=== PATIENT | male | born 1960 | race Caucasian/White ===

== ENCOUNTER 2018-05-19 16:08 | Inpatient (IN) | payer OTHER ==
[2018-05-19] MEDS ORDERED: Senokot S 8.6-50 MG TAB PO PRN (19:32)
[2018-05-19] MEDS ORDERED: Guaifenesin DM 100-10/5 ML UDCUP PO PRN (19:32)
[2018-05-19] MEDS ORDERED: Acetaminophen 325 MG TAB PO PRN (19:32)
[2018-05-19 20:54] VITALS: BMI 43.9
[2018-05-19 21:32] LABS: Troponin I Less than 0.010 ng/mL (< 0.028)
[2018-05-19] MEDS: Famotidine 20 MG TAB PO SCH (21:54)
[2018-05-19] MEDS: Piperacillin/Tazobactam 4.5 GM in Sodium Chloride 0.9% 100 ML IVPB SCH (21:54)
[2018-05-19] MEDS: Metoprolol Tartrate 50 MG TAB PO SCH (21:54)
[2018-05-19] MEDS: Sodium Chloride 0.9% 1,000 ML IV SCH (21:57)
[2018-05-19] MEDS: Nicotine 21 MG PATCH TD SCH (21:58)
[2018-05-19 22:46] LABS: Troponin I Less than 0.010 ng/mL (< 0.028)
[2018-05-20] MEDS: Vancomycin HCl 1.5 GM in Sodium Chloride 0.9% 250 ML 300 ML IVPB SCH ×2 (00:11→09:35)
[2018-05-20] MEDS: Diltiazem 125 MG in Sodium Chloride 0.9% 100 ML IVPB SCH ×3 (00:11→22:58)
[2018-05-20] MEDS ORDERED: VANCOMYCIN/ RENALLY ADJUST ZOSYN IVPB PRN (00:31)
--- NOTE | 2018-05-20 01:39 | HP ---
PRIMARY CARE PHYSICIAN: Dr. Lisa Soares in [place]. REASON FOR ADMISSION: Atrial fibrillation with rapid ventricular response, new onset right lower ext remity cellulitis, sepsis. HISTORY OF PRESENT ILLNESS: The patient gives history of having swollen foot on the right side on . This started to become red. Progressively, this has gotten up to his knees. The patient wa s unable to move due to severe swelling and pain to ambulate. No complaints of chest pain or palpita tion. The patient has no shortness of breath, although I can hear his wheezes. He has had a stress test done 20 years back which was normal. No prior history of atrial fibrillation. The patient went to [place] [facility] from where he was transferred here. PAST MEDICAL/SURGICAL HISTORY: Hypertension, no prior surgery. CURRENT MEDICATIONS: Takes a medication for high blood pressure, does not know the name. PERSONAL HISTORY: Smokes 1 pack per day. Quit alcohol long back. Does not abuse drugs. He works [employer] in [place], [place]. FAMILY HISTORY: Mother is living and healthy. Father of stroke in his 80s. He lives alone. CODE STATUS: FULL. Power of claims attorney is his mom. REVIEW OF SYSTEMS: The following complete review of systems was negative, unless otherwise mentioned in the HPI or below: Constitutional: Weight loss or gain, ability to conduct usual activities. Skin: Rash, itching. Eyes: Double vision, pain. ENT/Mouth: Nose bleeding, neck stiffness, pain, tenderness. Cardiovascular: Palpitations, dyspnea on exertion, orthopnea. Respiratory: Shortness of breath, wheezing, cough, hemoptysis, fever or night sweats. Gastrointestinal: Poor appetite, abdominal pain, heartburn, nausea, vomiting, constipation, or diarr hea. Genitourinary: Urgency, frequency, dysuria, nocturia. Musculoskeletal: Pain, swelling. Neurologic/Psychiatric: Anxiety, depression. Allergy/Immunologic: Skin rash, bleeding tendency. PHYSICAL EXAMINATION: GENERAL: The patient is a 58-year-old male who is currently in moderate distress from pain in his ri ght lower extremity. VITAL SIGNS: Blood pressure 126/74, pulse 130 per minute, respiratory rate 20 per minute, temperatur e 100 degrees Fahrenheit, saturating 96% on room air. NECK: Supple, no elevated JVD. EYES: Extraocular muscles intact. Pupils reacting to light. ORAL CAVITY: Mucous membranes are dry. No exudates or congestion. CARDIOVASCULAR SYSTEM: S1, S2 heard. Irregular rhythm. RESPIRATORY SYSTEM: Air entry 2+ bilateral. Scattered wheezes plus bilateral. ABDOMEN: Soft, bowel sounds heard. No tenderness, rigidity or guarding. EXTREMITIES: Right leg area is swollen and is diffusely erythematous. He also has blisters on the a nterolateral aspect, multiple of them. Capillary refill is good in the toes. Left lower extremity, no calf tenderness or edema. VASCULAR SYSTEM: Peripheral pulses 1+ bilateral, no ischemic ulcerations or gangrene. CENTRAL NERVOUS SYSTEM: No gross focal deficits noted. Patient is alert, awake, oriented well. PSYCHIATRIC SYSTEM: The patient's mood is euthymic. No hallucinations or delusions. LABORATORY DATA AND IMAGING DATA: Please note all these labs were done at [place] [facility]. Had a white count of 25, hemoglobin and hematocrit 16 and 47, platelet count 208 with 88% neutrophil s. BNP was 108. Sodium 128, potassium 3.6, serum bicarbonate 28, BUN is 8.9, creatinine 0.7, serum glucose 109. T. bili 3.3, albumin is 3.2, CK-MB 1.4, troponin less than 0.01, TSH is 0.72. Chest x- ray done shows cardiomegaly, no acute infiltrate. Right leg x-ray two views done show no fracture. CLINICAL IMPRESSION AND PLAN: The patient will be admitted to IMCU for atrial fibrillation with rapi d ventricular response with sepsis and severe cellulitis of right lower extremity. He will be on van comycin and Zosyn for cellulitis. He is currently on Cardizem drip and we will continue the same. W e will add Lopressor 50 mg twice daily. The patient also has acute COPD exacerbation with longstandi ng history of smoking. He will be on Solu-Medrol 20 mg IV q.8 hourly. Echo with 2D Doppler will be obtained. Cardiology consultation with Dr. Elise and infectious disease consultation with Dr. Sheldon friedman will be requested. We will obtain an echo with 2D Doppler for LV function and to rule out thrombu s. The patient's total bilirubin is 3.1 and he does not know if he has hepatitis although his AST an d ALT is within normal limits. We will obtain a hepatitis panel as well. CODE STATUS: FULL. Power of claims attorney is his mom.
[2018-05-20] MEDS: Piperacillin/Tazobactam 4.5 GM in Sodium Chloride 0.9% 100 ML IVPB SCH ×2 (04:03→11:58)
[2018-05-20 04:07] LABS: Anion Gap 9 mmol/L (10-20); BUN (Urea Nitrogen) 11 mg/dL (8.4-25.7); Calc. Creatinine Clearance 245 mL/min (70-130); Calcium 8.8 mg/dL (7.8-10.44); Carbon Dioxide 29 mmol/L (22-29); Chloride 95 mmol/L (98-107); Estimated GFR-MDRD Greater than 90; Glucose 123 mg/dL (70-105); Potassium 4.2 mmol/L (3.5-5.1); Sodium 129 mmol/L (136-145)
[2018-05-20 04:16] LABS: Band 3 % (5-11); Hemoglobin 15.1 g/dL (14.0-18.0); Lymphocytes 3 % (21-51); MDiff Complete? YES; Mean Corpuscular HGB CONC 32.9 g/dL (32.0-36.0); Mean Corpuscular Hemoglobin 31.8 pg (27.0-31.0); Mean Corpuscular Volume 96.6 fL (78.0-98.0); Mean Platelet Volume 8.1 fL (7.4-10.4); Monocytes 3 % (0-10); Neutrophil 91 % (42-75); PLT Morphology Comment Appears Adequate; Platelet Count 219 thou/uL (130-400); RBC Distribution Width 13.2 % (11.5-14.5); RBC Morphology Normal; Red Blood Cell (RBC) Count 4.75 mill/uL (4.70-6.10); White Blood Cell (WBC) Count 22.1 thou/uL (4.8-10.8)
[2018-05-20 04:25] LABS: HBCM Index 0.09 S/CO (0-0.79); HBSAg Index 0.22 S/CO (0-0.99); Hep A IgM AB Non-Reactive (NonReactive); Hep A IgM S/CO 0.09 S/CO (0-0.79); Hep B Surf Ag Non-Reactive S/CO (NonReactive); Hep C IgG Ab Non-Reactive (NonReactive); Hep C Index 0.22 S/CO (0-0.79); Hepatitis B Core IgM Abs Non-Reactive (NonReactive)
[2018-05-20] MEDS: Metoprolol Tartrate 50 MG TAB PO SCH ×2 (09:34→20:18)
[2018-05-20] MEDS: Enoxaparin Sodium 40 MG/0.4 ML SYRINGE SC SCH (09:34)
[2018-05-20] MEDS: predniSONE 5 MG TAB PO SCH (09:34)
[2018-05-20] MEDS: Famotidine 20 MG TAB PO SCH ×2 (09:34→20:19)
--- NOTE | 2018-05-20 11:54 | PDOC.PN ---
- Subjective Encounter Start Date: 05/20/18 Encounter Start Time: 10:45 Subjective: feels better -: is able to lift his right leg a bit now, pain is better -: no chest pain or palp or sob - Objective Resuscitation Status: Resuscitation Status FULL:Full Resuscitation MAR Reviewed: Yes Vital Signs & Weight: Vital Signs (12 hours) Temp Pulse Resp BP Pulse Ox 05/20/18 11:23 97.9 F 94 18 114/72 91 L 05/20/18 08:00 100 05/20/18 07:31 99 16 96 05/20/18 07:27 97.8 F 108 H 18 104/82 94 L 05/20/18 04:00 98.1 F 90 24 H 95/63 94 L 05/20/18 00:27 94 16 95 05/20/18 00:00 100.0 F H 98 25 H 106/68 94 L Weight Weight 324 lb 5 oz I&O: 05/19/18 05/20/18 05/21/18 06:59 06:59 06:59 Intake Total 1660 Output Total 1100 Balance 560 Result Diagrams: 05/20/18 03:32 05/20/18 03:32 Phys Exam - Physical Examination HEENT: PERRLA, sclera anicteric Neck: no JVD, supple Respiratory: no wheezing, no rales rhonchi+ Cardiovascular: no significant murmur, irregular Gastrointestinal: soft, non-tender, positive bowel sounds Musculoskeletal: edema present right leg has severe erythema and blistering Neurological: non-focal, moves all 4 limbs Psychiatric: normal affect, A&O x 3 Dx/Plan (1) Sepsis Code(s): A41.9 - SEPSIS, UNSPECIFIED ORGANISM Status: Acute Qualifiers: Sepsis type: sepsis due to unspecified organism Qualified Code(s): A41.9 - Sepsis, unspecified organism (2) Cellulitis of right leg Code(s): L03.115 - CELLULITIS OF RIGHT LOWER LIMB Status: Acute (3) Afib Code(s): I48.91 - UNSPECIFIED ATRIAL FIBRILLATION Status: Acute Comment: new onset (4) COPD exacerbation Code(s): J44.1 - CHRONIC OBSTRUCTIVE PULMONARY DISEASE W (ACUTE) EXACERBATION Status: Acute (5) Obesity Code(s): E66.9 - OBESITY, UNSPECIFIED Status: Chronic Qualifiers: Obesity classification: adult class 3 (BMI >= 40) Body mass index: BMI 40.0 -44.9 - Plan is on cardizem drip along with oral lopressor -: on vanc and zosyn, wound care -: oral prednisone, nebs -: cardio consult, echo pending -: to mobilize as tolerated, usg venous doppler of right leg to r/o dvt * . Review of Systems - Medications/Allergies Allergies/Adverse Reactions: Allergies Allergy/AdvReac Type Severity Reaction Status Date / Time No Known Drug Allergies Allergy Verified 05/20/18 00:41 Medications: Current Medications Acetaminophen (Tylenol) 650 mg PO Q4H PRN PRN Reason: Headache/Fever/Mild Pain (1-3) Last Admin: 05/19/18 22:11 Dose: 650 mg Albuterol/Ipratropium (Duoneb) 3 ml NEB [id number] [facility] Last Admin: 05/20/18 07:31 Dose: 3 ml Enoxaparin Sodium (Lovenox) 40 mg SC 0900 [facility] Last Admin: 05/20/18 09:34 Dose: 40 mg Famotidine (Pepcid) 20 mg PO BID [facility] Last Admin: 05/20/18 09:34 Dose: 20 mg Guaifenesin/Dextromethorphan (Robitussin Dm) 15 ml PO Q4H PRN PRN Reason: Cough Diltiazem HCl 125 mg/ Sodium (Chloride) 125 mls @ 5 mls/hr IVPB INF [facility]; Protocol Last Admin: 05/20/18 00:11 Dose: 125 mls Sodium Chloride (Normal Saline 0.9%) 1,000 mls @ 70 mls/hr IV .[id number] [facility] Last Admin: 05/19/18 21:57 Dose: 1,000 mls Piperacillin Sod/Tazobactam (Sod 4.5 gm/ Sodium Chloride) 100 mls @ 200 mls/hr IVPB 0400,1200,2000 [facility] Last Admin: 05/20/18 04:03 Dose: 100 mls Vancomycin HCl 1.5 gm/ Sodium (Chloride) 300 mls @ 150 mls/hr IVPB 0800,1600, 2359 [facility] Last Admin: 05/20/18 09:35 Dose: 300 mls Metoprolol Tartrate (Lopressor) 50 mg PO BID [facility] Last Admin: 05/20/18 09:34 Dose: 50 mg Miscellaneous Medication (Pharmacy To Dose) 1 each IVPB PRN PRN PRN Reason: Pharmacy to dose Nicotine (Nicoderm Patch) 21 mg TD Q24HR [facility] Last Admin: 05/19/18 21:58 Dose: 21 mg Prednisone (Prednisone) 5 mg PO QAM-WM [facility] Last Admin: 05/20/18 09:34 Dose: 5 mg Senna/Docusate Sodium (Senokot S) 2 tab PO BIDPRN PRN PRN Reason: Constipation Sodium Chloride (Flush - Normal Saline) 10 ml IVF Q12HR [facility] Last Admin: 05/20/18 09:35 Dose: Not Given Sodium Chloride (Flush - Normal Saline) 10 ml IVF PRN PRN PRN Reason: Saline Flush
--- NOTE | 2018-05-20 15:14 | ULT ---
VENOUS DOPPLER ULTRASOUND OF RIGHT LOWER EXTREMITY: Date: 05/20/18 HISTORY: Right leg cellulitis, right leg edema and pain. TECHNIQUE: Moran scale ultrasound with color flow and spectral Doppler imaging of the deep venous system of the r ight lower extremity is performed. FINDINGS: There is good flow, compression, and augmentation noted in the right common femoral, femoral, deep fe moral, popliteal, posterior tibial, and greater saphenous veins. Incidental note is made of prominent lymph nodes in the right groin. IMPRESSION: No evidence of deep venous thrombosis in the right lower extremity. POS: GEGE
[2018-05-20] MEDS: cefTRIAXone\\ROCEPHIN 1 GM in Sodium Chloride 0.9% 100 ML IVPB SCH (15:50)
[2018-05-20] MEDS: Sodium Chloride 0.9% 1,000 ML IV SCH (15:50)
--- NOTE | 2018-05-20 18:19 | CON ---
DATE OF CONSULTATION: 05/20/2018 HISTORY: Mr. Lutz is a pleasant gentleman. He says he has been having pain in his right leg for many days. He said he is unable to put any weight on his foot for several days. He reports that he is much better now. Last week, he was fine. He says he always has scratches on his legs or arms from working outdoors but has not really had any puncture wounds to his leg that he can recall. He was transferred here from [place] for atrial fibrillation and cellulitis. PAST MEDICAL HISTORY: Remarkable for hypertension. He is pack a day smoker. He does not drink. He does not use drugs. FAMILY HISTORY: Positive for vascular disease. Negative for lung disease in early age. REVIEW OF SYSTEMS: Ten-point review of systems otherwise negative. As mentioned, he says his leg fe els much better. PHYSICAL EXAMINATION: VITALS: He is afebrile, heart rate is 94, respiratory rate is 18, oximetry is 92% on room air, blood pressure 117/91. HEAD AND NECK: Unremarkable. Dentition is fair. He has no lymphadenopathy. LUNGS: Clear. HEART: Irregular rhythm. S1 and S2 are normal. I do not hear a gallop. I do hear a grade 2/6 syst olic murmur. ABDOMEN: Soft and nontender. EXTREMITIES: Right lower extremity is wrapped. His foot is very erythematous. Just below the knee, there is a pen marking, I am sure it was the edge of the erythema and this appears to have improved. IMPRESSION: 1. Significant cellulitis involving his right lower extremity. 2. Rapid atrial fibrillation. 3. Sleep apnea, suspect. 4. Hypertension. I do not feel he needs scheduled nebs. He does not feel they are helping. He is a smoker but he is not bronchospastic at this time. Echocardiogram will need to be done. He will be seen by Cardiology. He will continue broad antimicr obial therapy.
--- NOTE | 2018-05-20 19:06 | CON ---
DATE OF CONSULTATION: 05/20/2018 REASON FOR CONSULTATION: Cellulitis, right leg. HISTORY OF PRESENT ILLNESS: A 58-year-old with history of chronic smoking, hypertension, venous insu fficiency, who developed inflammatory changes right leg which led to admission. No headaches, no sor e throat, odynophagia, dysphagia, no vomiting, no chest pain. Mild dyspnea. No abdominal pain or di arrhea. No genitourinary symptoms. PAST MEDICAL HISTORY: Hypertension, obesity, venous insufficiency, chronic smoking. CURRENT MEDICATIONS: Diltiazem, albuterol, Lovenox, Pepcid, metoprolol, Zosyn, prednisone and vancom ycin. SOCIAL HISTORY: Current smoker. Works at [employer] in [place], [place]. No drug use. FAMILY HISTORY: Noncontributory. ALLERGY HISTORY: Negative. PHYSICAL EXAMINATION: VITAL SIGNS: Temperature max 100, currently 97.9, blood pressure 170/91, pulse 91, respirations 18, O2 sat 92%. GENERAL: Awake, appears in no distress, oriented, follows commands. SKIN: Shows this area circumferential erythema, right leg. There is some element of onychodystrophy and/or onychomycosis. In the right leg, there are some tiny little pustules or blisters scattered t hroughout the medial aspect. Some of those areas with confluence of those blisters and two large are as of blistering, but most of those blisters are quite small. The erythema is circumferential, quite extensive and involves the entire foot and leg all the way to the knee. No purpura. No lymphadenop athy. HEENT: Ocular movements are conjugate. Has quite a few teeth in place with some decay and gum disea se. NECK: Supple, no jugular vein distention or carotid bruits. LUNGS: With symmetric breath sounds with faint expiratory wheezing. HEART: S1, S2, regular rate. ABDOMEN: Soft, not distended, maybe some mild to moderate distention, no tenderness. No ascites. N o bladder distention. EXTREMITIES: No joint inflammatory activity, pitting edema in lower extremities is noted more on the lower right side. Pulses are 1+ in dorsalis pedis. He is able to move extremities with limitations imposed by the inflammatory process right leg. NEUROLOGIC: Cognitive function appears to be intact. LABORATORY DATA: White cell count 22,000, hemoglobin 15, platelets 219. Sodium 129, creatinine 0.7. Hepatitis serology negative. Two sets of blood cultures thus far negative. The patient had a dupl ex ultrasound and still waiting on the results of those. ASSESSMENT: Obesity, chronic smoking, venous insufficiency, onychomycosis with cellulitis right leg. DISCUSSION: The most likely scenario is beta hemolytic strep cellulitis, we will switch him to Rocep hin. Elevate extremity, eventual compression dressings. Upon improvement and discharged on oral Kef hanh and then subsequent suppressive Pen-Vee K for 1 year 250 mg twice daily plus compression stocking s.
[2018-05-20] MEDS ORDERED: Digoxin 0.5 MG/2 ML AMP SLOW IVP SCH (20:00)
[2018-05-20] MEDS: Nicotine 21 MG PATCH TD SCH (20:18)
[2018-05-21] MEDS: Digoxin 0.5 MG/2 ML AMP SLOW IVP SCH ×2 (02:09→09:03)
--- NOTE | 2018-05-21 03:21 | CON ---
DATE OF CONSULTATION: 05/20/2018 DATE OF ADMISSION: 05/19/2018 INDICATION FOR CONSULTATION: This is a 58-year-old patient who has been newly diagnosed with atrial fibrillation with rapid ventricular response. HISTORY OF PRESENT ILLNESS: This very unfortunate gentleman has had no previous cardiac history that he is aware of except for hypertension. 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 At that time, he also was diagnosed with atrial fibrillation with rapid ventricular res ponse. He denies any symptoms associated with the atrial fibrillation and was unaware that he was ta chycardic. He was brought to here for further evaluation and treatment. He has had no complaints of palpitations or chest pain and no previous cardiac history. At this time, he is comfortable, but sa ys his right lower extremity is wrapped in a surgical dressing. He is alert and oriented, is very he lpful with the H&P. PAST MEDICAL HISTORY: Significant for the hypertension. He has had no previous significant past med ical history otherwise. He takes medications for his blood pressure was unaware of what medicine he was taking. SOCIAL HISTORY: He smokes pack a day and has done so for about 35 years. He no longer drinks alcoho l. He done in the past but has now been abstinent for quite some time. FAMILY HISTORY: Unremarkable for any early heart disease. His father did have a CVA in his 60s and mother is still alive and well apparently. REVIEW OF SYSTEMS: A 12-point review of systems unremarkable except for occasionally some lower leg edema or swelling, but this has been very unusual. He said due to his legs did not swell, he was giv en some diuretics by physician in the past, but only takes some as needed. Otherwise, his 12-point r eview of systems unremarkable except what was noted in the history of present illness. PHYSICAL EXAMINATION: GENERAL: Reveals a middle-aged gentleman who is in no acute distress at this time. He is alert. He is oriented. VITAL SIGNS: His blood pressure 117/81, heart rate is 90 to 100 and shows atrial fibrillation, tempe rature is 97.8, respiratory rate 20, O2 saturation 95%. HEENT: Shows the head to be normocephalic and atraumatic. Carotid pulses are present. I did not he ar any bruits. CHEST: Has decreased breath sounds. He has expiratory wheezing throughout. CARDIOVASCULAR: He has irregularly regular rhythm, somewhat tachycardic. I cannot hear any signific ant murmurs, heaves, thrills, bruits, or rubs. Heart sounds are also somewhat distant. ABDOMEN: Shows morbid obesity with positive bowel sounds. No organomegaly, masses, or tenderness we re noted. EXTREMITIES: Show no clubbing or cyanosis; however, the right lower extremity is wrapped in surgical dressing with Jill, not see any other abnormalities. Pedal pulses are somewhat decreased, but they are large extremities. I did not see any edema on the left lower extremity. NEUROLOGIC: The patient appears to be intact. Also note, the patient does have very poor dentition and most likely will need to have some extractions of his teeth. This may be contributing some to diana henson cellulitis perhaps. LABORATORY DATA: Shows sodium of 129, which is on low side, which is hyponatremic. Potassium is 4.2 , blood sugar is 123, creatinine 0.7. Hemoglobin is 15.1 with a WBC of 22.1 with 3% bands with some on left shift with 91% neutrophils. EKG shows atrial fibrillation with rapid ventricular response. IMPRESSION: 1. Right lower extremity cellulitis, which is being dealt with by the primary care service. 2. Atrial fibrillation with rapid ventricular response. He did not know this is a new finding wheth er or not this is new-onset, the atrial fibrillation is unclear at this time. We will need to obtain records from his primary care physicians in [place], see when he has had any recent EKGs to determ ine whether or not he has had atrial fibrillation or a normal EKG in the past. At this time, we ____ _ rate control. Certainly, the rate is somewhat increased by his cellulitis or infection, but at thi s time, I would agree with the low dose of the beta rafael. I would agree with the beta blockers, shamika henson is also on steroids. I believe, he is also on diltiazem still, we will add digoxin for better rate control. In the future, after received an echocardiogram, we will decide whether or not he needs to be placed on long-term anticoagulation. An attempt at electrocardioversion whether or not he can be seen or should be seen by the refrigeration unit repairer for possible ablation of the atrial fibrillation. Fortunately, at this time, he is relatively asymptomatic. I will be more than happy to continue to follow the patient with you. 3. Elevated blood sugar. This may be due to the steroids that the patient is taking at this time. He denies any history of diabetes in the past and says that he has often been checked for diabetes, b ut none has been found. In the future, he would also need to undergo a stress test to rule out evide nce of underlying coronary artery disease or ischemia as a possible etiology of his atrial fibrillati on so since he has a long history of tobacco abuse. 4. History of tobacco abuse. He will be encouraged to stop smoking and certainly this may be contri buting to his overall atrial fibrillation and he may have underlying coronary artery disease.
[2018-05-21] MEDS: Famotidine 20 MG TAB PO SCH ×2 (09:03→20:14)
[2018-05-21] MEDS: Enoxaparin Sodium 40 MG/0.4 ML SYRINGE SC SCH (09:03)
[2018-05-21] MEDS: Metoprolol Tartrate 50 MG TAB PO SCH ×2 (09:03→20:14)
[2018-05-21] MEDS: predniSONE 5 MG TAB PO SCH (09:03)
[2018-05-21] MEDS: Sodium Chloride 0.9% 1,000 ML IV SCH (09:04)
[2018-05-21] MEDS: Diltiazem 125 MG in Sodium Chloride 0.9% 100 ML IVPB SCH (09:12)
[2018-05-21] MEDS: cefTRIAXone\\ROCEPHIN 1 GM in Sodium Chloride 0.9% 100 ML IVPB SCH (15:52)
--- NOTE | 2018-05-21 17:17 | PDOC.PN ---
- Subjective Encounter Start Date: 05/21/18 Encounter Start Time: 17:15 Subjective: f/u for RLE cellulitis and new-onset A-fib RVR on Cardizem gtt and -: Lopressor. - Objective Resuscitation Status: Resuscitation Status FULL:Full Resuscitation Vital Signs & Weight: Vital Signs (12 hours) Temp Pulse Resp BP BP BP Pulse Ox 05/21/18 15:13 98.3 F 76 17 112/66 05/21/18 13:29 120/70 115/69 05/21/18 11:18 97.9 F 90 18 133/84 94 L 05/21/18 09:03 96 05/21/18 08:00 96 05/21/18 07:28 97.8 F 96 20 104/68 92 L Weight Admit Weight 324 lb 3 oz Weight 325 lb 14.4 oz I&O: 05/20/18 05/21/18 05/22/18 06:59 06:59 06:59 Intake Total 1660 3909 480 Output Total 1100 2725 1125 Balance 560 1184 -645 Result Diagrams: 05/20/18 03:32 05/20/18 03:32 Radiology Reviewed by me: Yes (2D echo - EF 55-60%, mod LAE, technically limited exam) EKG Reviewed by me: Yes (Tele - A-fib in 80's) Phys Exam - Physical Examination Constitutional: NAD HEENT: PERRLA, sclera anicteric, oral pharynx no lesions Neck: no nodes, no JVD, supple, full ROM Respiratory: no wheezing, no rales, no rhonchi, clear to auscultation bilateral S1, S2 Cardiovascular: no significant murmur, no rub, gallop, irregular Gastrointestinal: soft, non-tender, no distention, positive bowel sounds RLE erythema and edema to knee, foot Musculoskeletal: pulses present Neurological: normal sensation, moves all 4 limbs Psychiatric: normal affect, A&O x 3 Skin: normal turgor, cap refill <2 seconds Dx/Plan (1) Atrial fibrillation with RVR Code(s): I48.91 - UNSPECIFIED ATRIAL FIBRILLATION Status: Acute Comment: Rate improved with Cardizem gtt, continue Metoprolol and Digoxin (2) Cellulitis of right leg Code(s): L03.115 - CELLULITIS OF RIGHT LOWER LIMB Status: Acute Comment: Continue Rocephin (3) Sepsis Code(s): A41.9 - SEPSIS, UNSPECIFIED ORGANISM Status: Acute Qualifiers: Sepsis type: sepsis due to unspecified organism Qualified Code(s): A41.9 - Sepsis, unspecified organism Comment: Secondary to RLE cellulitis, improving (4) Obesity Code(s): E66.9 - OBESITY, UNSPECIFIED Status: Chronic Qualifiers: Obesity classification: adult class 3 (BMI >= 40) Body mass index: BMI 40.0 -44.9 Comment: Weight mgmt resources - Plan continue antibiotics, 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
--- NOTE | 2018-05-21 17:40 | PRG ---
DATE OF SERVICE: 05/21/2018 SUBJECTIVE: Karlos Lutz says he is feeling better. His leg is not hurting as much. It is unwrappe d when I saw him today and it is still extremely erythematous. OBJECTIVE: VITAL SIGNS: He is afebrile, heart rate 70, respiratory rate 18, oximetry is 94%, blood pressure 133 /84. Intake and output is positive 1184. LUNGS: Clear today. HEART: Irregular, but in the 80s today. ABDOMEN: Soft and nontender. Echocardiogram shows normal ejection fraction, mild mitral regurgitation and moderately dilated left atrium. IMPRESSION: 1. Severe cellulitis of his right lower extremity, on antimicrobial therapy with slow clinical impro vement. The margins appear to be retreating. 2. Tobacco use until this admission. 3. Atrial fibrillation, which is new. 4. Obesity, sleep apnea, suspect. Microbiology has shown no positive cultures. Dr. Williamson felt it was more likely Streptococcal infecti on and has adjusted antimicrobial therapy. We will continue to follow with the other physicians tommie polk for him. Mr. Lutz is stable at this time.
[2018-05-21] MEDS: Nicotine 21 MG PATCH TD SCH (20:16)
[2018-05-22] MEDS: Sodium Chloride 0.9% 1,000 ML IV SCH (04:28)
[2018-05-22] MEDS: Diltiazem 125 MG in Sodium Chloride 0.9% 100 ML IVPB SCH ×2 (04:28→15:18)
[2018-05-22 04:36] LABS: Hemoglobin A1c 5.7 % (4.0-6.0)
[2018-05-22 04:59] LABS: Anion Gap 10 mmol/L (10-20); BUN (Urea Nitrogen) 14 mg/dL (8.4-25.7); Calc. Creatinine Clearance 250 mL/min (70-130); Calcium 8.6 mg/dL (7.8-10.44); Carbon Dioxide 27 mmol/L (22-29); Chloride 103 mmol/L (98-107); Estimated GFR-MDRD Greater than 90; Glucose 104 mg/dL (70-105); Hemoglobin 13.9 g/dL (14.0-18.0); Mean Corpuscular HGB CONC 29.5 g/dL (32.0-36.0); Platelet Count 334 thou/uL (130-400); Potassium 4.2 mmol/L (3.5-5.1); RBC Distribution Width 13.3 % (11.5-14.5); Red Blood Cell (RBC) Count 4.79 mill/uL (4.70-6.10); Sodium 136 mmol/L (136-145); White Blood Cell (WBC) Count 17.9 thou/uL (4.8-10.8)
[2018-05-22 05:00] LABS: Band 3 % (5-11); Lymphocytes 11 % (21-51); MDiff Complete? YES; Monocytes 4 % (0-10); Myelocyte 1 % (0-0); Neutrophil 81 % (42-75)
[2018-05-22] MEDS: Digoxin 0.25 MG TAB PO SCH (08:55)
[2018-05-22] MEDS: Famotidine 20 MG TAB PO SCH ×2 (08:55→20:16)
[2018-05-22] MEDS: predniSONE 5 MG TAB PO SCH (08:55)
[2018-05-22] MEDS: Enoxaparin Sodium 40 MG/0.4 ML SYRINGE SC SCH (08:55)
[2018-05-22] MEDS: Metoprolol Tartrate 50 MG TAB PO SCH ×2 (08:56→20:16)
[2018-05-22] MEDS: cefTRIAXone\\ROCEPHIN 1 GM in Sodium Chloride 0.9% 100 ML IVPB SCH (15:58)
--- NOTE | 2018-05-22 17:41 | PRG ---
DATE OF SERVICE: 05/22/2018 SUBJECTIVE: Karlos Lutz remains about the same. His erythema persists in his right lower extremity. OBJECTIVE: His vital signs have been stable today since he has been afebrile, heart rate is in the 9 0s, respiratory rate in the 20s, oximetry is 91 on room air, blood pressure 119/98. He is walking th e young with physical therapy on exam. He did have wheezes this morning bilaterally but these are mil d. We will change his nebulizer treatments from p.r.n. to routine but he may be able to get with n ebulizer treatments just 3 times a day. He is a smoker leading up to this. We will continue IV antimicrobial therapy. Continue physical the rapy.
--- NOTE | 2018-05-22 18:37 | PDOC.PN ---
- Subjective Encounter Start Date: 05/22/18 Encounter Start Time: 18:30 Subjective: f/u for A-fib RVR on Cardizem gtt now rate controlled. Also with RLE -: cellulitis on Rocephin. States he ambulated in halls today. No fever or -: chills. - Objective Resuscitation Status: Resuscitation Status FULL:Full Resuscitation MAR Reviewed: Yes Vital Signs & Weight: Vital Signs (12 hours) Temp Pulse Pulse Pulse Resp BP BP 05/22/18 16:00 98.9 F 74 22 H 05/22/18 11:38 98.3 F 75 23 H 05/22/18 10:45 82 80 119/98 H 132/93 H 05/22/18 08:55 92 05/22/18 08:00 98.5 F 91 27 H 05/22/18 07:27 98.5 F 91 27 H BP Pulse Ox Pulse Ox Pulse Ox 05/22/18 16:00 136/79 92 L 05/22/18 11:38 119/98 H 91 L 05/22/18 10:45 92 L 84 L 05/22/18 08:55 05/22/18 08:00 151/111 H 91 L 05/22/18 07:27 151/111 H 91 L Weight Admit Weight 324 lb 3 oz Weight 325 lb 14.4 oz I&O: 05/21/18 05/22/18 05/23/18 06:59 06:59 06:59 Intake Total 3909 1776 1738 Output Total 2725 3225 1650 Balance 1184 -1449 88 Result Diagrams: 05/22/18 04:03 05/22/18 04:03 Additional Labs: Laboratory Tests 05/20/18 05/20/18 05/22/18 03:32 03:32 04:03 WBC 22.1 H Neutrophils % (Manual) 91 H 81 H Sodium 129 L EKG Reviewed by me: Yes (Tele - A-fib in 70's) Phys Exam - Physical Examination Constitutional: NAD HEENT: PERRLA, sclera anicteric, oral pharynx no lesions Neck: no nodes, no JVD, supple, full ROM scattered coarse sounds S1, S2 Cardiovascular: no significant murmur, no rub, gallop, irregular Gastrointestinal: soft, non-tender, no distention, positive bowel sounds RLE edema persists, +erythema similar to exam 05/21/18 Musculoskeletal: pulses present Neurological: normal sensation, moves all 4 limbs Psychiatric: A&O x 3 Skin: normal turgor, cap refill <2 seconds Dx/Plan (1) Atrial fibrillation with RVR Code(s): I48.91 - UNSPECIFIED ATRIAL FIBRILLATION Status: Acute Comment: Rate improved with Cardizem gtt, continue Metoprolol and Digoxin, d/c Cardizem gtt this pm and convert to po (2) Cellulitis of right leg Code(s): L03.115 - CELLULITIS OF RIGHT LOWER LIMB Status: Acute Comment: Continue Rocephin, WCT for local care, elevate while in bed (3) Sepsis Code(s): A41.9 - SEPSIS, UNSPECIFIED ORGANISM Status: Acute Qualifiers: Sepsis type: sepsis due to unspecified organism Qualified Code(s): A41.9 - Sepsis, unspecified organism Comment: Secondary to RLE cellulitis, improving (4) Obesity Code(s): E66.9 - OBESITY, UNSPECIFIED Status: Chronic Qualifiers: Obesity classification: adult class 3 (BMI >= 40) Body mass index: BMI 40.0 -44.9 Comment: Weight mgmt resources - Plan continue antibiotics, PT/OT, social services assistant, out of bed/ambulate Stable currently -: Continue Rocephin 2gm IV daily -: WCT for local care -: OOB/ambulate with PT -: D/C Cardizem gtt this pm * AM lab: CBC
[2018-05-22] MEDS: Nicotine 21 MG PATCH TD SCH (20:17)
[2018-05-23] MEDS: Sodium Chloride 0.9% 1,000 ML IV SCH (04:34)
[2018-05-23 05:06] LABS: Band 5 % (5-11); Hemoglobin 14.8 g/dL (14.0-18.0); Lymphocytes 8 % (21-51); MDiff Complete? YES; Mean Corpuscular HGB CONC 29.6 g/dL (32.0-36.0); Mean Corpuscular Hemoglobin 29.1 pg (27.0-31.0); Mean Corpuscular Volume 98.3 fL (78.0-98.0); Mean Platelet Volume 6.5 fL (7.4-10.4); Monocytes 15 % (0-10); Neutrophil 72 % (42-75); Platelet Count 349 thou/uL (130-400); RBC Distribution Width 13.4 % (11.5-14.5); Red Blood Cell (RBC) Count 5.07 mill/uL (4.70-6.10); White Blood Cell (WBC) Count 16.3 thou/uL (4.8-10.8)
[2018-05-23] MEDS: Metoprolol Tartrate 50 MG TAB PO SCH ×2 (08:52→20:46)
[2018-05-23] MEDS: Digoxin 0.25 MG TAB PO SCH (08:52)
[2018-05-23] MEDS: predniSONE 5 MG TAB PO SCH (08:53)
[2018-05-23] MEDS: Enoxaparin Sodium 40 MG/0.4 ML SYRINGE SC SCH (08:53)
[2018-05-23] MEDS: Famotidine 20 MG TAB PO SCH ×2 (08:53→20:46)
--- NOTE | 2018-05-23 09:58 | PRG ---
DATE OF SERVICE: 05/23/2018 Karlos Lutz remains stable. He is still in atrial fibrillation, but his rates controlled in the 80s . PHYSICAL EXAMINATION: VITAL SIGNS: He is afebrile, respiratory rate is 18, oximetry is 94% on room air, blood pressure 179 /115, it was 168/98 earlier. LUNGS: His lungs are free of wheezes today. HEART: Regular rhythm. ABDOMEN: Abdomen is soft. EXTREMITISE: His erythema in his right lower extremity continues to slowly improve. LABORATORY DATA: White count 16.3, hemoglobin 14.8, platelets 349,000. Sodium 136, potassium 4.2, chloride 103, bicarb 27, BUN 14, creatinine 0.69. Two nights ago he was caught smoking in his bathroom. IMPRESSION: 1. Severe cellulitis, right lower extremity. 2. Underlying chronic obstructive pulmonary disease. 3. Obesity. 4. Probable sleep apnea. 5. Smoking while in the hospital. 6. Atrial fibrillation which is new. PLAN: He can be transferred to the telemetry unit. He will continue with his antimicrobial therapy and his nebulizer treatments. We discussed smoking cessation and weight loss, but obviously this is unlikely to occur given his behavior in the hospital.
--- NOTE | 2018-05-23 13:08 | PDOC.PN ---
- Subjective Encounter Start Date: 05/23/18 Encounter Start Time: 13:00 Subjective: f/u for RLE cellulitis on Rocephin. A-fib now rate controlled. Feels ok -: overall. - Objective Resuscitation Status: Resuscitation Status FULL:Full Resuscitation MAR Reviewed: Yes Vital Signs & Weight: Vital Signs (12 hours) Temp Pulse Pulse Pulse Resp BP BP 05/23/18 11:29 05/23/18 11:03 98.1 F 95 20 05/23/18 10:31 138 H 81 184/116 H 148/104 H 05/23/18 10:00 05/23/18 08:56 98 05/23/18 08:52 98 05/23/18 08:00 05/23/18 07:31 97.5 F L 85 18 05/23/18 06:37 76 16 05/23/18 04:00 98.3 F 79 22 H BP Pulse Ox 05/23/18 11:29 156/98 H 05/23/18 11:03 124/116 H 92 L 05/23/18 10:31 05/23/18 10:00 149/91 H 05/23/18 08:56 05/23/18 08:52 05/23/18 08:00 93 L 05/23/18 07:31 179/115 H 94 L 05/23/18 06:37 94 L 05/23/18 04:00 168/98 H 94 L Weight Admit Weight 324 lb 3 oz Weight 328 lb I&O: 05/22/18 05/23/18 05/24/18 06:59 06:59 06:59 Intake Total 1776 1738 1150 Output Total 3225 1650 1300 Balance -1449 88 -150 Result Diagrams: 05/23/18 04:21 05/22/18 04:03 Additional Labs: Laboratory Tests 05/20/18 05/20/18 05/22/18 03:32 03:32 04:03 WBC 22.1 H Neutrophils % (Manual) 91 H 81 H Sodium 129 L EKG Reviewed by me: Yes (Tele - A-fib in 70's) Phys Exam - Physical Examination Constitutional: NAD HEENT: PERRLA, sclera anicteric, oral pharynx no lesions Neck: no nodes, no JVD, supple, full ROM few scattered rhonchi Respiratory: no wheezing S1, S2 Cardiovascular: no significant murmur, no rub, gallop, irregular Gastrointestinal: soft, non-tender, no distention, positive bowel sounds erythema, edema persists Musculoskeletal: pulses present, edema present Neurological: normal sensation, moves all 4 limbs Psychiatric: A&O x 3 Skin: normal turgor, cap refill <2 seconds Dx/Plan (1) Atrial fibrillation with RVR Code(s): I48.91 - UNSPECIFIED ATRIAL FIBRILLATION Status: Acute Comment: Continue Metoprolol and Digoxin, d/c Cardizem gtt this pm and convert to po, start Eliquis 5mg BID (2) Cellulitis of right leg Code(s): L03.115 - CELLULITIS OF RIGHT LOWER LIMB Status: Acute Comment: Continue Rocephin, WCT for local care, elevate while in bed, slow improvement (3) Sepsis Code(s): A41.9 - SEPSIS, UNSPECIFIED ORGANISM Status: Acute Qualifiers: Sepsis type: sepsis due to unspecified organism Qualified Code(s): A41.9 - Sepsis, unspecified organism Comment: Secondary to RLE cellulitis, improving (4) Obesity Code(s): E66.9 - OBESITY, UNSPECIFIED Status: Chronic Qualifiers: Obesity classification: adult class 3 (BMI >= 40) Body mass index: BMI 40.0 -44.9 Comment: Weight mgmt resources - Plan continue antibiotics, 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
[2018-05-23] MEDS ORDERED: Apixaban 5 MG TAB PO SCH (14:00)
[2018-05-23] MEDS: cefTRIAXone\\ROCEPHIN 2 GM in Sodium Chloride 0.9% 100 ML IVPB SCH (15:30)
--- NOTE | 2018-05-23 16:14 | PRG ---
DATE OF SERVICE: 05/23/2018 SUBJECTIVE: Mr. Lutz is feeling better. He has been walking around with less pain. No respiratory symptoms or abdominal pain. No diarrhea. Voiding without difficulty. PHYSICAL EXAMINATION: VITAL SIGNS: Showed slight tachycardia. His temperature is 98, BP 144/98, O2 sat 94% HEENT: Flushed facial skin. Ocular movements conjugate. LUNGS: Clear. HEART: S1, S2, regular rate. ABDOMEN: Soft, maybe moderately distended, no tenderness. No bladder distention. EXTREMITIES: Right leg with improvement in the appearance of the cellulitis and most of the changes now are progressing to dark purplish stage which one sees in patients with severe cellulitis. There is epidermolysis, areas of blistering in the superficial layer of skin consistent with erysipelas. Continue Rocephin and eventually transition to oral Keflex. Two days preparation for discharge planning. Continue treating for another 2 weeks approximately, and then transition to Pen-Vee K 250 mg twice daily for 1 year plus compression stockings. MTDD
[2018-05-23] MEDS: Apixaban 5 MG TAB PO SCH (20:46)
[2018-05-23] MEDS: Nicotine 21 MG PATCH TD SCH (20:47)
[2018-05-24] MEDS: Sodium Chloride 0.9% 1,000 ML IV SCH (01:12)
[2018-05-24] MEDS: Apixaban 5 MG TAB PO SCH ×2 (09:07→21:00)
[2018-05-24] MEDS: predniSONE 5 MG TAB PO SCH (09:07)
[2018-05-24] MEDS: Famotidine 20 MG TAB PO SCH ×2 (09:08→21:00)
[2018-05-24] MEDS: Metoprolol Tartrate 50 MG TAB PO SCH ×2 (09:08→21:00)
--- NOTE | 2018-05-24 13:31 | PRG ---
DATE OF SERVICE: 05/24/2018 SERVICE: Pulmonary Medicine. INTERVAL HISTORY: The patient is doing fine from a respiratory standpoint. He indicates he is breat alin comfortably. He denies any current chest pain, fevers, chills, nausea or vomiting. There are n o overnight events. He has been able to walk around the room under his own strength. PHYSICAL EXAMINATION: VITAL SIGNS: Afebrile, pulse 93, blood pressure 166/115, respirations 17, saturation 96% on room air . GENERAL: The patient is awake and alert, in no apparent distress. LUNGS: Excellent air entry. There is no prolonged expiratory phase. Minimal dependent crackles are present. There is expiratory wheezing also noted. HEART: Normal rate, regular. ABDOMEN: Soft, nontender, nondistended. Bowel sounds are positive. MUSCULOSKELETAL: No cyanosis or clubbing. There is trace 1+ pitting in the bilateral lower extremit ies. There is erythema of the right lower extremity, but the erythema is regressing. ASSESSMENT: 1. Severe sepsis. 2. Cellulitis of the right lower extremity. 3. Chronic obstructive pulmonary disease without current exacerbation. 4. Obstructive sleep apnea, suspected. 5. Morbid obesity. 6. Tobacco abuse. 7. Atrial fibrillation. DISCUSSION AND PLAN: We will continue his antimicrobial therapy moving forward. At this point, he i s awaiting a transition to the telemetry unit. Pulmonary and Critical Care will continue to follow i n this location.
--- NOTE | 2018-05-24 14:03 | PDOC.PN ---
- Subjective Encounter Start Date: 05/24/18 Encounter Start Time: 14:00 Subjective: f/u for RLE cellulitis on Rocephin. Still with redness and swelling but -: feels ok. No fever or chills. - Objective Resuscitation Status: Resuscitation Status FULL:Full Resuscitation MAR Reviewed: Yes Vital Signs & Weight: Vital Signs (12 hours) Temp Pulse Resp BP Pulse Ox 05/24/18 10:58 98.3 F 93 17 166/115 H 96 05/24/18 09:07 76 05/24/18 08:06 95 05/24/18 07:27 96.5 F L 83 18 158/108 H 98 05/24/18 07:06 88 20 92 L 05/24/18 03:31 98.0 F 77 20 134/97 H 90 L Weight Admit Weight 324 lb 3 oz Weight 328 lb I&O: 05/23/18 05/24/18 05/25/18 06:59 06:59 06:59 Intake Total 1738 3060 Output Total 1650 4850 Balance 88 -1790 Result Diagrams: 05/23/18 04:21 05/22/18 04:03 Additional Labs: Laboratory Tests 05/20/18 05/20/18 05/22/18 03:32 03:32 04:03 WBC 22.1 H Neutrophils % (Manual) 91 H 81 H Sodium 129 L EKG Reviewed by me: Yes (Tele - A-fib in 90's) Phys Exam - Physical Examination Constitutional: NAD HEENT: PERRLA, sclera anicteric, oral pharynx no lesions Neck: no nodes, no JVD, supple, full ROM Respiratory: no wheezing, no rales, no rhonchi, clear to auscultation bilateral S1, S2 Cardiovascular: no significant murmur, no rub, gallop, irregular Gastrointestinal: soft, non-tender, no distention, positive bowel sounds Erythema and superficial blistering on holder RLE Musculoskeletal: pulses present Neurological: normal sensation, moves all 4 limbs Psychiatric: A&O x 3 Skin: normal turgor, cap refill <2 seconds Dx/Plan (1) Atrial fibrillation with RVR Code(s): I48.91 - UNSPECIFIED ATRIAL FIBRILLATION Status: Acute Comment: Continue Metoprolol and Digoxin, d/c Cardizem gtt this pm and convert to po, start Eliquis 5mg BID (2) Cellulitis of right leg Code(s): L03.115 - CELLULITIS OF RIGHT LOWER LIMB Status: Acute Comment: Continue Rocephin, WCT for local care, elevate while in bed, slow improvement, convert to Keflex 05/25/18 (3) Sepsis Code(s): A41.9 - SEPSIS, UNSPECIFIED ORGANISM Status: Acute Qualifiers: Sepsis type: sepsis due to unspecified organism Qualified Code(s): A41.9 - Sepsis, unspecified organism Comment: Secondary to RLE cellulitis, improving (4) Obesity Code(s): E66.9 - OBESITY, UNSPECIFIED Status: Chronic Qualifiers: Obesity classification: adult class 3 (BMI >= 40) Body mass index: BMI 40.0 -44.9 Comment: Weight mgmt resources - Plan 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
[2018-05-24] MEDS: cefTRIAXone\\ROCEPHIN 2 GM in Sodium Chloride 0.9% 100 ML IVPB SCH (16:28)
[2018-05-24] MEDS: Nicotine 21 MG PATCH TD SCH (21:01)
[2018-05-25] MEDS: Metoprolol Tartrate 50 MG TAB PO SCH (08:12)
[2018-05-25] MEDS: Apixaban 5 MG TAB PO SCH (08:12)
[2018-05-25] MEDS: cefTRIAXone\\ROCEPHIN 2 GM in Sodium Chloride 0.9% 100 ML IVPB SCH (08:12)
[2018-05-25] MEDS: Famotidine 20 MG TAB PO SCH (08:12)
[2018-05-25] MEDS: predniSONE 5 MG TAB PO SCH (08:12)
--- NOTE | 2018-05-25 08:45 | DIS ---
DATE OF ADMISSION: 05/19/2018 DATE OF DISCHARGE: 05/25/2018 DISCHARGE DIAGNOSES: 1. Atrial fibrillation with rapid ventricular response, rate controlled currently. 2. Cellulitis of the right lower extremity. 3. Sepsis, secondarily to cellulitis of the right lower extremity, resolving. 4. Morbid obesity. 5. Hypertension. 6. Tobacco abuse. CONSULTATIONS: Dr. Jimenez and Dr. Ames with Pulmonology service. Dr. Hammad Williamson with Infectiou s Disease service. with Cardiology service. PERTINENT LABORATORY AND X-RAY FINDINGS: Sodium ranged between 129-136, creatinine ranged between 0. 69-0.70, lactic acid level 1.4, troponin I negative x2. Hemoglobin A1c 5.7. CBC showed a white bloo d cell count ranging between 16.3-22.1. Blood cultures x3 dated 05/19/2018 showed no growth at 5 day s. Right lower extremity venous Doppler study dated 05/20/2018 showed no evidence for DVT. A 2D tra nsthoracic echocardiogram dated 05/20/2018 showed technically difficult exam. Ejection fraction loni mated at 55%-60%. Moderate left atrial enlargement. HOSPITAL COURSE: The patient was initially admitted to the intermediate care unit after presenting w ith atrial fibrillation with rapid ventricular response, apparently new onset in the context of right lower extremity cellulitis. The patient was noted with sepsis criteria due to the right lower extre mity cellulitis, placed on vancomycin and Zosyn for medical management. The patient was also noted i n atrial fibrillation with rapid ventricular response, placed on a Cardizem infusion as well as given metoprolol 50 mg twice daily. The patient was evaluated by the Cardiology service with recommendati ons for further rate control in addition to initiation of anticoagulation with Eliquis. The patient' s overall heart rate was controlled with calcium channel blockers and beta blockers. Current recomme ndations are for further rate control and consideration for future cardioversion after anticoagulatio n for 4-6 weeks. The patient was also evaluated by the Infectious Disease service due to severe righ t lower extremity cellulitis that was slow to clinically improve with IV antibiotic therapy. The pat ient did transition from vancomycin and Zosyn to Rocephin and continue Rocephin for the remainder of the hospital course. Current recommendations are to transition to Keflex for 2 weeks post-discharge, transitioning to Pen-Vee K 250 mg twice daily for 1 year after completion of the Keflex. Overall, p dnany did remain clinically stable during the hospital course. The patient voided appropriately, to lerated regular oral intake with stable vital signs. I have examined the patient at the time of disc harge and discussed followup instructions. The patient overall clinically stable and ready for disch arge on 05/25/2018. DISCHARGE MEDICATIONS: 1. Eliquis 5 mg 1 tab p.o. b.i.d. 2. Keflex 500 mg p.o. b.i.d. x2 weeks. 3. Diltiazem CD 120 mg p.o. b.i.d. 4. Metoprolol tartrate 50 mg p.o. b.i.d. FOLLOWUP: Patient will follow up with his primary care provider, Lisa Manzo, Family Nurse [facility] in [place], [place], within 7 days of discharge. The patient will follow up with Dr. Andrae harrington [facility] Cardiology Service within 2 weeks of discharge and to call her office for appointment time and date. CONDITION ON DISCHARGE: Stable. ACTIVITY: Ad judah. DIET: Heart healthy. CODE STATUS: FULL. DISPOSITION: Home, 05/25/2018.
[2018-05-25 11:40] VITALS: BP 168/87; TEMP 97.6
== END 2018-05-25 12:12 | disposition home or self-care (01) | DRG 872 ==
LOC: ERS 16:08 → IMCU/EMU 20:31 → 2NO 05-24 17:02
PROVIDERS: ADMIT Internal Medicine; ATTEND Internal Medicine
DX: A41.9 Sepsis, unspecified organism (principal); L03.115 Cellulitis of right lower limb; Z68.41 Body mass index [BMI] 40.0-44.9, adult; R65.20 Severe sepsis without septic shock; I10 Essential (primary) hypertension; F17.210 Nicotine dependence, cigarettes, uncomplicated; F41.9 Anxiety disorder, unspecified; F32.9 Major depressive disorder, single episode, unspecified; E66.01 Morbid (severe) obesity due to excess calories; J44.9 Chronic obstructive pulmonary disease, unspecified; G47.33 Obstructive sleep apnea (adult) (pediatric); I87.2 Venous insufficiency (chronic) (peripheral); Z79.899 Other long term (current) drug therapy; I48.91 Unspecified atrial fibrillation
CPT/HCPCS: 36415; 80048; 80074; 83036; 83605; 84484; 85007; 85025; 85027; 93005; 93306; 94640; 96365; 96366; G8978-GP-CL; G8979-GP-CJ; J0696; J1160; J1650; J2543; J2920; J3370; J7050; J7620